=== PATIENT | female | born 1965 | race Caucasian/White ===

== ENCOUNTER 2016-08-04 12:57 | Outpatient (RCR) | payer BC, OTHER ==
--- OUTSIDE RECORDS SUMMARY | 2016-05-08 13:22 | XMS REPORT | Continuity of Care Document ---
Author Author [facility] Organization [facility] Address Unknown Phone Unavailable Care Team Providers Care Fire Medic Name Role Phone EDISON GUSMAN MD PCP Insurance Providers Payer Name Policy Number Subscriber Name Relationship Blue Cross [facility] [id number] Roshni Harden 18 Self / Same As Patient [facility] [id number] Roshni Harden 18 Self / Same As Patient Advance Directives Directive Response Recorded Date/Time Advance Directives No 04/10/14 10:34pm Health Care Power of Peel Oven Tender No 04/10/14 10:34pm Organ Donor No 04/10/14 10:34pm Problems Medical Problems Problem Onset Date Status Acquired hypothyroidism Unknown Active Hypokalemia Unknown Active Acquired hypothyroidism Unknown Active Stroke 04/24/2014 Active Medications Medication Dose Route Sig Days/Qty Instructions Order Date Discontinued Date Status [Iron] 10/07/09 07/20/11 Discontinued Aspirin 81 Mg PO DAILY 10/07/09 07/21/11 Discontinued Simvastatin 20 Mg PO DAILY 10/07/09 Active Alprazolam 1 Mg PO BEDTIME 07/20/11 03/14/14 Discontinued Estradiol 0.5 Mg PO DAILY 07/20/11 02/14/14 Discontinued Fluoxetine HCl (Prozac) 10 Mg PO AFTERNOON 07/20/11 04/24/14 Discontinued Aspirin 325 Mg PO DAILY 07/21/11 11/15/13 Discontinued Diltiazem Hcl 360 Mg PO DAILY 07/21/11 Active Triamterene/Hydrochlorothiazid 1 Each PO DAILY 11/14/13 Active Apixaban 5 Mg PO TWICE A DAY 60 Qty 11/15/13 02/15/14 Discontinued Metformin HCl (Glucophage) 1 Each PO TWICE A DAY WITH MEALS 02/14/14 Active Levothyroxine Sodium (Levothroid) 100 Mcg PO DAILY 30 Qty 03/14/14 Discontinued Apixaban (Eliquis) 5 60 Qty 03/14/14 Active Levothyroxine Sodium 137 Mcg PO DAILY 30 Qty 03/14/14 04/24/14 Discontinued Levothyroxine Sodium (Levothroid) 150 Mcg PO DAILY@0630 30 Qty Active Aspirin 81 Mg PO DAILY 100 Qty 04/24/14 Active Digoxin 0.25 Mg PO DAILY 30 Qty 04/24/14 Active Social History Social History Problem Response Recorded Date/Time Alcohol Use Denies Use 04/10/2014 10:36pm Recreational Drug Use No 04/10/2014 10:36pm Recent Foreign Travel No 04/10/2014 10:36pm Recent Infectious Disease Exposure No 04/10/2014 10:36pm Hospitalization with Isolation Denies 04/24/2014 1:23pm Sexually Transmitted Disease No 04/10/2014 10:36pm Hospital Discharge Instructions No hospital discharge instructions. Plan of Care No plan of care. Functional Status No functional status results. Allergies, Adverse Reactions, Alerts Allergen Type Severity Reaction Status Last Updated No Known Drug Allergies Active 09/08/07 Immunizations Name Given Type Hepatitis A No Historical Hepatitis B No Historical Tetanus Booster (TDap) Less than 5yrs Historical Vital Signs No known vital signs results. Results Laboratory Results Test Name Result Units Flags Reference Collection Date/Time Result Date/ Time Comments White Blood Count 13.1 10^3/uL H 4.3-11.0 10/11/2014 10:55am 10/11/2014 11:03am Red Blood Count 5.04 10^6/uL 4.35-5.85 10/11/2014 10:55am 10/11/2014 11 :03am Hemoglobin 14.1 G/DL 11.5-16.0 10/11/2014 10:55am 10/11/2014 11:03am Hematocrit 44 % 35-52 10/11/2014 10:55am 10/11/2014 11:03am Mean Corpuscular Volume 87 FL 80-99 10/11/2014 10:55am 10/11/2014 11: 03am Mean Corpuscular Hemoglobin 28 PG 25-34 10/11/2014 10:55am 10/11/2014 11:03am Mean Corpuscular Hemoglobin Concent 32 G/DL 32-36 10/11/2014 10:55am 11:03am Red Cell Distribution Width 15.9 % H 10.0-14.5 10/11/2014 10:55am 2014 11:03am Platelet Count 240 10^3/uL 130-400 10/11/2014 10:55am 10/11/2014 11: 03am Mean Platelet Volume 11.9 FL H 7.4-10.4 10/11/2014 10:55am 10/11/2014 11: 03am Neutrophils (%) (Auto) 73 % 42-75 10/11/2014 10:55am 10/11/2014 11: 03am Lymphocytes (%) (Auto) 20 % 12-44 10/11/2014 10:55am 10/11/2014 11: 03am Monocytes (%) (Auto) 6 % 0-12 10/11/2014 10:55am 10/11/2014 11:03am Eosinophils (%) (Auto) 2 % 0-10 10/11/2014 10:55am 10/11/2014 11:03am Basophils (%) (Auto) 0 % 0-10 10/11/2014 10:55am 10/11/2014 11:03am Neutrophils # (Auto) 9.5 X 10^3 H 1.8-7.8 10/11/2014 10:55am 10/11/2014 11:03am Lymphocytes # (Auto) 2.6 X 10^3 1.0-4.0 10/11/2014 10:55am 10/11/2014 11:03am Monocytes # (Auto) 0.8 X 10^3 0.0-1.0 10/11/2014 10:55am 10/11/2014 11: 03am Eosinophils # (Auto) 0.2 10^3/uL 0.0-0.3 10/11/2014 10:55am 10/11/2014 11:03am Basophils # (Auto) 0.1 10^3/uL 0.0-0.1 10/11/2014 10:55am 10/11/2014 11 :03am Neutrophils % (Manual) 61 % 10/11/2014 10:55am 10/11/2014 11:19am Band Neutrophils 1 % 10/11/2014 10:55am 10/11/2014 11:19am Lymphocytes % (Manual) 23 % 10/11/2014 10:55am 10/11/2014 11:19am Monocytes % (Manual) 11 % 10/11/2014 10:55am 10/11/2014 11:19am Eosinophils % (Manual) 1 % 10/11/2014 10:55am 10/11/2014 11:19am Basophils % (Manual) 0 % 10/11/2014 10:55am 10/11/2014 11:19am Reactive Lymphocytes 3 % 10/11/2014 10:55am 10/11/2014 11:19am Anisocytosis SLIGHT 10/11/2014 10:55am 10/11/2014 11:19am Macrocytosis SLIGHT 10/11/2014 10:55am 10/11/2014 11:19am Absolute Reticulocyte Count 96 10e9/L H 24-90 10/11/2014 10:55am 2014 11:03am Percent Reticulocyte Count 1.91 % 0.50-2.40 10/11/2014 10:55am 2014 11:03am Sodium Level 139 MMOL/L 135-145 10/11/2014 10:55am 10/11/2014 11:23am Potassium Level 3.4 MMOL/L L 3.6-5.0 10/11/2014 10:55am 10/11/2014 11: 23am Chloride Level 101 MMOL/L 98-107 10/11/2014 10:55am 10/11/2014 11:23am Carbon Dioxide Level 26 MMOL/L 21-32 10/11/2014 10:55am 10/11/2014 11: 23am Blood Urea Nitrogen 10 MG/DL 7-18 10/11/2014 10:55am 10/11/2014 11: 23am Creatinine 1.02 MG/DL 0.60-1.30 10/11/2014 10:55am 10/11/2014 11:23am BUN/Creatinine Ratio 10 10/11/2014 10:55am 10/11/2014 11:23am Estimat Glomerular Filtration Rate 58 10/11/2014 10:55am 2014 11:23am GFR INTERPRETIVE DATA UNITS FOR ESTIMATED GFR (eGFR): mL/min/1.73 M2 REFERENCE RANGE FOR ESTIMATED GFR (eGFR) eGFR NORMAL eGFR >60 MODERATELY DECREASED eGFR 30-59 SEVERLY DECREASED eGFR 15-29 KIDNEY FAILURE <15 (OR DIALYSIS) Glucose Level 111 MG/DL H 70-105 10/11/2014 10:55am 10/11/2014 11:23am Calcium Level 9.5 MG/DL 8.5-10.1 10/11/2014 10:55am 10/11/2014 11:23am Total Bilirubin 0.4 MG/DL 0.1-1.0 10/11/2014 10:55am 10/11/2014 11: 23am Alkaline Phosphatase 100 U/L 40-136 10/11/2014 10:55am 10/11/2014 11: 23am Aspartate Amino Transf (AST/SGOT) 12 U/L 5-34 10/11/2014 10:55am 2014 11:23am Alanine Aminotransferase (ALT/SGPT) 24 U/L 0-55 10/11/2014 10:55am 07/2015 11:23am Total Protein 6.8 G/DL 6.4-8.2 10/11/2014 10:55am 10/11/2014 11:23am Albumin 4.0 G/DL 3.2-4.5 10/11/2014 10:55am 10/11/2014 11:23am Triglycerides Level 222 MG/DL H <150 10/11/2014 10:55am 10/11/2014 11: 23am Cholesterol Level 149 MG/DL < 200 10/11/2014 10:55am 10/11/2014 11: 23am HDL Cholesterol 34 MG/DL L 40-60 10/11/2014 10:55am 10/11/2014 11:23am LDL Cholesterol Direct 82 MG/DL 1-129 10/11/2014 10:55am 10/11/2014 11: 23am VLDL Cholesterol 44 MG/DL H 5-40 10/11/2014 10:55am 10/11/2014 11:23am Thyroid Stimulating Hormone (TSH) 0.63 UIU/ML 0.35-4.94 10/11/2014 10: 55am 10/11/2014 11:45am Free Thyroxine 1.36 NG/DL 0.70-1.48 10/11/2014 10:55am 10/11/2014 11: 45am Digoxin Level 1.02 NG/ML 0.80-2.00 10/11/2014 10:55am 10/11/2014 11: 45am Hemoglobin A1c 4.1 % L 4.5-6.2 10/11/2014 10:55am 10/11/2014 11:39am Ferritin 8 L NG/ML 15-150 10/11/2014 10:55am 10/12/2014 8:52am Haptoglobin 211.0 H MG/DL 37.0-184.0 10/11/2014 10:55am 10/12/2014 8: 52am Vitamin B12 Level 242 PG/ML 200-1000 10/11/2014 10:55am 10/12/2014 8: 52am Vitamin D 25-Hydroxy 7 L NG/ML 30-100 10/11/2014 10:55am 10/12/2014 8: 52am Fluorescein dye has been shown to affect the Vitamin D assay and results may be falsely elevated. Patients that have had a procedure using this dye should be deferred 72 hours prior to blood samples drawn for this assay. Total Bilirubin 0.3 MG/DL 0.1-1.0 10/11/2014 10:55am 10/12/2014 8:52am Direct Bilirubin 0.1 MG/DL 0.0-0.2 10/11/2014 10:55am 10/12/2014 8: 52am Lactate Dehydrogenase 132 U/L 100-250 10/11/2014 10:55am 10/12/2014 8: 52am Immature Platelet Fraction 14.8 H % 0.0-7.2 10/11/2014 10:55am 2014 8:52am SCAN REVIEW LARGE PLATELETS SEEN ON SCAN. Procedures Procedure Status Date Provider(s) Tracing only of electrocardiogram completed 10/11/14 EDISON GUSMAN MD Color Doppler echocardiography completed 10/12/14 JAYY HERMAN MD 48 hour Holter monitoring completed 10/12/14 JAYY HERMAN MD 48 hour Holter monitoring completed 10/12/14 JAYY HERMAN MD Encounters Encounter Location Date/Time Discharged Recurring Via [facility] 11/01/14 1:00pm Registered Clinic Via [facility] 10/12/14 9:59am Registered Clinic Via [facility] 10/11/14 10:24am
[~2016-08-04 12:57] MED LIST: ALPR1T PO; APIX5TAB2; APIX5TAB2 PO; ASP325TEC PO; ASP81CT PO; ASPI-892 PO; DIGO250T15 PO; DILT360C26 PO; ESTR0.5T PO; FLUO10CA19 PO; IRON; LEVO137T17 PO; LVT.15T PO; LVT.1T PO; MTF500T PO; SIMV20TA3 PO; TRIA1CAP4 PO
== END 2016-08-06 | disposition home or self-care (01) ==
PROVIDERS: ATTEND Family Medicine
DX: I69.820 Aphasia following other cerebrovascular disease (principal); I69.893 Ataxia following other cerebrovascular disease

== ENCOUNTER 2016-09-01 12:51 | Outpatient (RCR) | payer BC, OTHER ==
--- OUTSIDE RECORDS SUMMARY | 2016-08-11 12:50 | XMS REPORT | Continuity of Care Document ---
Author Author [facility] Organization [facility] Address Unknown Phone Unavailable Care Team Providers Care Inventory Management Specialist Name Role Phone EDISON GUSMAN MD PCP Insurance Providers Payer Name Policy Number Subscriber Name Relationship Blue Cross [facility] [id number] Roshni Harden 18 Self / Same As Patient [facility] [id number] Roshni Harden 18 Self / Same As Patient Advance Directives Directive Response Recorded Date/Time Advance Directives No 04/10/14 10:34pm Health Care Power of Stevedore Dock No 04/10/14 10:34pm Organ Donor No 04/10/14 [...] Encounters Encounter Location Date/Time Discharged Recurring Via [facility] 11/01/14 1:00pm Registered Clinic Via [facility] 10/12/14 9:59am Registered Clinic Via [facility] 10/11/14 10:24am
== END 2016-09-01 13:34 | disposition home or self-care (01) ==
PROVIDERS: ATTEND Family Medicine
DX: I69.820 Aphasia following other cerebrovascular disease (principal); I69.893 Ataxia following other cerebrovascular disease

== ENCOUNTER → 2016-10-07 | Outpatient (CLI) | payer BC ==
--- OUTSIDE RECORDS SUMMARY | 2016-10-07 08:26 | XMS REPORT | Continuity of Care Document ---
Author Author [facility] Organization [facility] Address Unknown Phone Unavailable Care Team Providers Care Cap Cutter Name Role Phone EDISON GUSMAN MD PCP Insurance Providers Payer Name Policy Number Subscriber Name Relationship Blue Cross [facility] [id number] Roshni Harden 18 Self / Same As Patient [facility] [id number] Roshni Harden 19 Self / Same As Patient Advance Directives Directive Response Recorded Date/Time Advance Directives No 04/10/14 10:34pm Health Care Power of Prepress Specialist No 04/10/14 10:34pm Organ Donor No 04/10/14 [...] Encounters Encounter Location Date/Time Discharged Recurring Via [facility] 11/01/14 1:00pm Registered Clinic Via [facility] 10/12/14 9:59am Registered Clinic Via [facility] 10/11/14 10:24am
[2016-10-07 08:32] LABS: BASOPHILS % (AUTO) 0 % (0-10); EOSINOPHILS # (AUTO) 0.3 10^3/uL (0.0-0.3); EOSINOPHILS % (AUTO) 2 % (0-10); LYMPHOCYTES # (AUTO) 3.3 X 10^3 (1.0-4.0); LYMPHOCYTES % (AUTO) 23 % (12-44); MEAN CORPUSCULAR HEMOGLOBIN 29 PG (25-34); MEAN CORPUSCULAR HGB CONC 33 G/DL (32-36); MEAN CORPUSCULAR VOLUME 89 FL (80-99); MONOCYTES % (AUTO) 7 % (0-12); NEUTROPHILS # (AUTO) 10.1 X 10^3 (1.8-7.8); NEUTROPHILS % (AUTO) 69 % (42-75); PLATELET COUNT 210 10^3/uL (130-400); RED BLOOD COUNT 5.75 10^6/uL (4.35-5.85); RED CELL DISTRIBUTION WIDTH 15.5 % (10.0-14.5); RETICULOCYTE % 2.08 % (0.50-2.40); WHITE BLOOD COUNT 14.7 10^3/uL (4.3-11.0)
[2016-10-07 08:33] LABS: PATH WILL NEED TO REVIEW SMEAR PATH TO REVIEW
[2016-10-07 09:14] LABS: ANISOCYTOSIS SLIGHT; BAND NEUTROPHILS 1 %; BASOPHILS % (MANUAL) 0 %; EOSINOPHILS % (MANUAL) 0 %; LYMPHOCYTES % (MANUAL) 30 %; NEUTROPHILS % (MANUAL) 62 %; REACTIVE LYMPHOCYTES 1 %
== END ==
LOC: LAB 08:21
PROVIDERS: ATTEND Nurse Practitioner Family
DX: D72.829 Elevated white blood cell count, unspecified (principal)
CPT/HCPCS: 36415; 85007; 85027; 85045

== ENCOUNTER → 2016-11-26 | Outpatient (CLI) | payer BC, MEDICAID ==
[~2016-11-26] MED LIST changes: +BARIUM SUSPENSION 2.1% (VANILLA SILQ) 450 ML PO ONE; +CATHETER FLUSH 10 ML SYR IV PRN; +IOHEXOL 350 MG/ML 100 ML (OMNIPAQUE 350) VIAL IV ONE; +NS 100 ML (IVPB) BAG IV ONE; +ceFAZolin 1 GM/NS 50 ML IVPB IV ONE
--- NOTE | 2016-11-26 14:58 | Diagnostic Imaging Report ---
PROCEDURE: CT of the chest and pelvis with contrast and CT of the abdomen with and without contrast. INDICATION: Lymphadenopathy. TECHNIQUE: CT imaging of the abdomen before as well as to the chest, abdomen and pelvis following the administration of the intravenous contrast. CORRELATION STUDY: CT chest 09/22/2011, CT abdomen and pelvis 09/20/2009. FINDINGS: CT CHEST: Since the prior imaging, patient has developed calcified periazygal lymph nodes. Scattered shotty mediastinal lymph nodes are present. No pathologically enlarged mediastinal and/or hilar lymph nodes. Axilla unremarkable. Scattered asymmetric areas of nodularity in bilateral breasts, right greater than left. Thoracic aorta is unremarkable. Heart size is normal. No pericardial effusion. EG junction has small hiatal hernia. Lung ellsworth are clear. CT ABDOMEN and PELVIS: Uniform attenuation of liver parenchyma without focal lesion. Gallbladder is absent. Spleen is unremarkable, it is not abnormally enlarged. Pancreas is unremarkable. Hyperplasia of the adrenal glands appearing generally stable. Kidneys with normal enhancement. Abdominal aorta with very mild wall calcification, nonaneurysmal. No pathologically enlarged central or retroperitoneal lymph nodes. Suggestion of slight fullness about the proximal stomach just distal to the EG junction. Small bowel unremarkable. Colon without obstruction or inflammation. Normal appendix in the right lower quadrant. Mild severity fecal retention. No abdominal ascites or free air. Urinary bladder is decompressed. Uterus and adnexa are unremarkable. Osseous structures of the abdomen and pelvis are unremarkable. IMPRESSION: CT CHEST: 1. Negative for acute abnormality of the chest. No evidence for pathologically enlarged thoracic lymphadenopathy. 2. Slightly nodular appearance about the breast parenchymal pattern. Correlation with mammographic evaluation would be recommended if not recently performed. CT ABDOMEN and PELVIS: 1. Negative for acute abnormality about the abdomen and/or pelvis. No pathologically enlarged abdominal or pelvic lymphadenopathy. 2. Hiatal hernia. Questionable wall thickening of the proximal stomach. Correlation with any symptoms. If further assessment is desired, endoscopy and/or upper gastrointestinal imaging recommended. Dictated by: Dictated on workstation # [id number]
== END ==
LOC: RAD 11:32
PROVIDERS: ATTEND Internal Medicine Hematology & Oncology
DX: R59.0 Localized enlarged lymph nodes (principal); K44.9 Diaphragmatic hernia without obstruction or gangrene
CPT/HCPCS: 71260; 74178

== ENCOUNTER 2016-12-07 14:03 | Outpatient (RCR) | payer BC, MEDICAID ==
--- OUTSIDE RECORDS SUMMARY | 2016-10-19 08:44 | XMS REPORT | Continuity of Care Document ---
Author Author [facility] Organization [facility] Address Unknown Phone Unavailable Care Team Providers Care Cobbler Upper Name Role Phone EDISON GUSMAN MD PCP Insurance Providers Payer Name Policy Number Subscriber Name Relationship Blue Cross [facility] [id number] Roshni Harden 18 Self / Same As Patient [facility] [id number] Roshni Harden 19 Self / Same As Patient Advance Directives Directive Response Recorded Date/Time Advance Directives No 04/10/14 10:34pm Health Care Power of Orthotics Prosthetics Technician No 04/10/14 10:34pm Organ Donor No 04/10/14 [...] Encounters Encounter Location Date/Time Discharged Recurring Via [facility] 11/01/14 1:00pm Registered Clinic Via [facility] 10/12/14 9:59am Registered Clinic Via [facility] 10/11/14 10:24am
[2016-10-19 08:53] LABS: BASOPHILS % (AUTO) 0 % (0-10); EOSINOPHILS # (AUTO) 0.2 10^3/uL (0.0-0.3); EOSINOPHILS % (AUTO) 2 % (0-10); LYMPHOCYTES # (AUTO) 2.7 X 10^3 (1.0-4.0); LYMPHOCYTES % (AUTO) 21 % (12-44); MEAN CORPUSCULAR HEMOGLOBIN 29 PG (25-34); MEAN CORPUSCULAR HGB CONC 33 G/DL (32-36); MEAN CORPUSCULAR VOLUME 89 FL (80-99); MEAN PLATELET VOLUME 12.1 FL (7.4-10.4); MONOCYTES # (AUTO) 0.9 X 10^3 (0.0-1.0); MONOCYTES % (AUTO) 7 % (0-12); NEUTROPHILS % (AUTO) 71 % (42-75); PLATELET COUNT 203 10^3/uL (130-400); RED BLOOD COUNT 5.64 10^6/uL (4.35-5.85); RED CELL DISTRIBUTION WIDTH 15.8 % (10.0-14.5); RETICULOCYTE % 1.91 % (0.50-2.40); WHITE BLOOD COUNT 12.8 10^3/uL (4.3-11.0)
[2016-10-19 09:33] LABS: BILIRUBIN,TOTAL 0.5 MG/DL (0.1-1.0); CALCIUM 9.1 MG/DL (8.5-10.1); CREATININE SERUM 1.19 MG/DL (0.60-1.30); POTASSIUM 4.6 MMOL/L (3.6-5.0); TOTAL PROTEIN 6.8 G/DL (6.4-8.2)
[2016-10-19 12:40] LABS: %SAT TOTAL IRON BINDING CAPIC 26 % (15-50); TIBC 465 ug/dL (280-380)
[2016-10-19 16:06] LABS: UIBC 346 ug/dL (55-450)
[2016-10-23 16:16] LABS: JAK2 MUTATION Not Detected
[2016-11-16 14:20] LABS: BASOPHILS % (AUTO) 0 % (0-10); EOSINOPHILS # (AUTO) 0.2 10^3/uL (0.0-0.3); EOSINOPHILS % (AUTO) 2 % (0-10); LYMPHOCYTES # (AUTO) 3.1 X 10^3 (1.0-4.0); LYMPHOCYTES % (AUTO) 23 % (12-44); MEAN CORPUSCULAR HEMOGLOBIN 30 PG (25-34); MEAN CORPUSCULAR HGB CONC 33 G/DL (32-36); MEAN CORPUSCULAR VOLUME 90 FL (80-99); MEAN PLATELET VOLUME 11.9 FL (7.4-10.4); MONOCYTES # (AUTO) 0.9 X 10^3 (0.0-1.0); MONOCYTES % (AUTO) 7 % (0-12); NEUTROPHILS % (AUTO) 68 % (42-75); PLATELET COUNT 207 10^3/uL (130-400); RED BLOOD COUNT 5.32 10^6/uL (4.35-5.85); RED CELL DISTRIBUTION WIDTH 15.2 % (10.0-14.5); WHITE BLOOD COUNT 13.3 10^3/uL (4.3-11.0)
[2016-11-16 16:03] LABS: CALCIUM 8.7 MG/DL (8.5-10.1); POTASSIUM 4.3 MMOL/L (3.6-5.0)
[~2016-12-07 14:03] MED LIST changes: -BARIUM SUSPENSION 2.1% (VANILLA SILQ) 450 ML PO ONE; -CATHETER FLUSH 10 ML SYR IV PRN; -IOHEXOL 350 MG/ML 100 ML (OMNIPAQUE 350) VIAL IV ONE; -NS 100 ML (IVPB) BAG IV ONE; -ceFAZolin 1 GM/NS 50 ML IVPB IV ONE
[2016-12-07 14:37] LABS: BASOPHILS % (AUTO) 0 % (0-10); EOSINOPHILS # (AUTO) 0.2 10^3/uL (0.0-0.3); EOSINOPHILS % (AUTO) 2 % (0-10); LYMPHOCYTES # (AUTO) 3.3 X 10^3 (1.0-4.0); LYMPHOCYTES % (AUTO) 22 % (12-44); MEAN CORPUSCULAR HEMOGLOBIN 30 PG (25-34); MEAN CORPUSCULAR HGB CONC 32 G/DL (32-36); MEAN CORPUSCULAR VOLUME 91 FL (80-99); MONOCYTES # (AUTO) 1.1 X 10^3 (0.0-1.0); MONOCYTES % (AUTO) 8 % (0-12); NEUTROPHILS # (AUTO) 10.2 X 10^3 (1.8-7.8); NEUTROPHILS % (AUTO) 68 % (42-75); PLATELET COUNT 204 10^3/uL (130-400); RED BLOOD COUNT 5.45 10^6/uL (4.35-5.85); RED CELL DISTRIBUTION WIDTH 14.9 % (10.0-14.5); WHITE BLOOD COUNT 14.9 10^3/uL (4.3-11.0)
== END 2017-02-14 | disposition home or self-care (01) ==
LOC: ONC 14:03
PROVIDERS: ATTEND Internal Medicine Hematology & Oncology
DX: D72.829 Elevated white blood cell count, unspecified (principal)
CPT/HCPCS: 36415; 80048; 80053; 81270; 82668; 82728; 83540; 83615; 85025; 85045; 99213; 99214

== ENCOUNTER 2018-01-24 08:39 | Outpatient (RCR) | payer BC ==
[2018-01-24 09:43] LABS: BASOPHILS % (AUTO) 0 % (0-10); EOSINOPHILS # (AUTO) 0.2 10^3/uL (0.0-0.3); EOSINOPHILS % (AUTO) 2 % (0-10); HEMATOCRIT 53 % (35-52); HEMOGLOBIN 17.4 G/DL (11.5-16.0); LYMPHOCYTES # (AUTO) 2.5 X 10^3 (1.0-4.0); LYMPHOCYTES % (AUTO) 22 % (12-44); MEAN CORPUSCULAR HEMOGLOBIN 31 PG (25-34); MEAN CORPUSCULAR HGB CONC 33 G/DL (32-36); MEAN CORPUSCULAR VOLUME 93 FL (80-99); MEAN PLATELET VOLUME 12.3 FL (7.4-10.4); MONOCYTES # (AUTO) 0.7 X 10^3 (0.0-1.0); MONOCYTES % (AUTO) 6 % (0-12); NEUTROPHILS # (AUTO) 7.8 X 10^3 (1.8-7.8); NEUTROPHILS % (AUTO) 69 % (42-75); PLATELET COUNT 197 10^3/uL (130-400); RED BLOOD COUNT 5.66 10^6/uL (4.35-5.85); RED CELL DISTRIBUTION WIDTH 14.5 % (10.0-14.5); WHITE BLOOD COUNT 11.2 10^3/uL (4.3-11.0)
[2018-01-24 10:34] LABS: LYMPHOCYTES % (MANUAL) 12 %; MONOCYTES % (MANUAL) 10 %; NEUTROPHILS % (MANUAL) 69 %
[2018-01-24 10:35] LABS: BASOPHILS % (MANUAL) 1 %; EOSINOPHILS % (MANUAL) 1 %; RBC MORPH NORMAL; REACTIVE LYMPHOCYTES 7 %
== END 2018-04-24 | disposition home or self-care (01) ==
LOC: ONC 08:39
PROVIDERS: ATTEND Internal Medicine Hematology & Oncology
DX: D75.1 Secondary polycythemia (principal); D72.829 Elevated white blood cell count, unspecified; F17.210 Nicotine dependence, cigarettes, uncomplicated
CPT/HCPCS: 36415; 81206; 82375; 85007; 85027; 99213

== ENCOUNTER 2019-02-17 09:25 | Outpatient (RCR) | payer BC, OTHER ==
[2019-02-17 09:58] LABS: BASOPHILS % (AUTO) 0 % (0-10); EOSINOPHILS # (AUTO) 0.1 10^3/uL (0.0-0.3); EOSINOPHILS % (AUTO) 1 % (0-10); HEMATOCRIT 54 % (35-52); HEMOGLOBIN 17.7 G/DL (11.5-16.0); LYMPHOCYTES # (AUTO) 2.6 X 10^3 (1.0-4.0); LYMPHOCYTES % (AUTO) 23 % (12-44); MEAN CORPUSCULAR HEMOGLOBIN 31 PG (25-34); MEAN CORPUSCULAR HGB CONC 33 G/DL (32-36); MEAN CORPUSCULAR VOLUME 94 FL (80-99); MEAN PLATELET VOLUME 12.6 FL (7.4-10.4); MONOCYTES # (AUTO) 0.5 X 10^3 (0.0-1.0); MONOCYTES % (AUTO) 4 % (0-12); NEUTROPHILS # (AUTO) 8.3 X 10^3 (1.8-7.8); NEUTROPHILS % (AUTO) 72 % (42-75); PLATELET COUNT 171 10^3/uL (130-400); RED CELL DISTRIBUTION WIDTH 14.7 % (10.0-14.5); WHITE BLOOD COUNT 11.6 10^3/uL (4.3-11.0)
[2019-02-17 10:16] LABS: ALBUMIN 4.2 GM/DL (3.2-4.5); BILIRUBIN,TOTAL 0.5 MG/DL (0.1-1.0); CALCIUM 9.4 MG/DL (8.5-10.1); CREATININE SERUM 1.21 MG/DL (0.60-1.30); POTASSIUM 4.3 MMOL/L (3.6-5.0); TOTAL PROTEIN 7.4 GM/DL (6.4-8.2)
== END 2019-05-18 | disposition home or self-care (01) ==
LOC: ONC 09:25
PROVIDERS: ATTEND Internal Medicine Hematology & Oncology
DX: D75.1 Secondary polycythemia (principal); D72.829 Elevated white blood cell count, unspecified; F17.210 Nicotine dependence, cigarettes, uncomplicated
CPT/HCPCS: 36415; 80053; 82728; 85025; 99213

== ENCOUNTER → 2019-08-22 | Outpatient (CLI) | payer BC, MEDICAID | LOC: RAD 11:05 | PROVIDERS: ATTEND Family Medicine | DX: Z12.31 Encounter for screening mammogram for malignant neoplasm of breast (principal) | CPT/HCPCS: 77067 ==

== ENCOUNTER 2020-10-07 06:59 | Day surgery (SDC) | payer MEDICARE, BC, MEDICAID ==
[~2020-10-07] VITALS: Ht 170.2 cm; Wt 106.8 kg
[2020-10-07] VITALS (11 sets, daily range): BP systolic 99–144; BP diastolic 62–90
[2020-10-07 07:52] LABS: ABSOLUTE RETIC # 150 10e9/uL (24-90); BASOPHILS % (AUTO) 0 % (0-10); EOSINOPHILS # (AUTO) 0.2 10^3/uL (0.0-0.3); EOSINOPHILS % (AUTO) 1 % (0-10); HEMATOCRIT 52 % (35-52); HEMOGLOBIN 17.1 g/dL (11.5-16.0); LYMPHOCYTES # (AUTO) 2.8 10^3/uL (1.0-4.0); LYMPHOCYTES % (AUTO) 24 % (12-44); MEAN CORPUSCULAR HEMOGLOBIN 31 pg (25-34); MEAN CORPUSCULAR HGB CONC 33 g/dL (32-36); MEAN CORPUSCULAR VOLUME 94 fL (80-99); MONOCYTES # (AUTO) 0.7 10^3/uL (0.0-1.0); MONOCYTES % (AUTO) 6 % (0-12); NEUTROPHILS # (AUTO) 8.2 10^3/uL (1.8-7.8); NEUTROPHILS % (AUTO) 69 % (42-75); PLATELET COUNT 170 10^3/uL (130-400); RETICULOCYTE % 2.72 % (0.50-2.40); WHITE BLOOD COUNT 11.9 10^3/uL (4.3-11.0)
[2020-10-07] MEDS ORDERED: NS IV 1000 ML 1,000 ML IV STA (07:56)
[2020-10-07] MEDS ORDERED: MIDAZOLAM 2 MG/2 ML (VERSED) VIAL IVP ONE (08:00)
[2020-10-07] MEDS ORDERED: LIDOCAINE 1% INJ 20 ML 20 ML VIAL INJ ONE (08:00)
[2020-10-07] MEDS ORDERED: fentaNYL INJ 100 MCG/2 ML AMP IVP ONE (08:00)
[2020-10-07 08:28] LABS: PROTHROMBIN TIME PATIENT 13.2 SEC (12.2-14.7)
--- NOTE | 2020-10-07 09:39 | Diagnostic Imaging Report ---
INDICATION: Elevated hemoglobin. The patient was brought to the CT suite, placed on table in the prone position. Axial imaging through the pelvis was performed to evaluate for appropriate entry site. Skin of the low back was prepped and draped in the usual sterile fashion. Small amount of 1% lidocaine was utilized for local anesthesia. The procedure was performed utilizing conscious sedation with radiology nursing and constant patient monitoring. Patient was given total of 50 mcg fentanyl intravenously and 1 mg of Versed intravenously. Total procedure time was 6 minutes. Bone marrow biopsy needle was advanced and placed with its tip along the posterior cortex of the right iliac bone. The needle was passed through the cortex utilizing a bone marrow drill. 2 bone marrow aspirates were then obtained. The drill was then utilized to obtain a core biopsy. Needle was withdrawn and hemostasis was obtained. Patient tolerated the procedure well and left the Department in stable condition. IMPRESSION: Successful CT-guided bone marrow aspiration and core biopsy, utilizing conscious sedation. Dictated by: Dictated on workstation # [id number]
[2020-10-07] MEDS ORDERED: HYDROcodone/APAP 5 MG/325 MG (LORTAB) TAB PO PRN (09:45)
[2020-10-07 10:17] LABS: EOSINOPHILS % (MANUAL) 2 %; LYMPHOCYTES % (MANUAL) 22 %; MONOCYTES % (MANUAL) 5 %; NEUTROPHILS % (MANUAL) 71 %; RBC MORPH NORMAL
--- NOTE | 2020-10-07 12:52 | Pre-Op Note & Conscious Sedat ---
Pre-Operative Progress Note H&P Reviewed The H&P was reviewed, patient examined and no changes noted. Date H&P Reviewed: Oct 07, 2020 Time H&P Reviewed: 09:00 Pre-Op Diagnosis: High hemoglobin Conscious Sedation Pre-Proced Time 09:00 ASA Score 2 For ASA 3 and 4: Consider anesthesia and medical clearance. Also, for patients with a history of failed moderate sedation consider anesthesia. Airway Lungs Heart ASA score ASA 1: a normal healthy patient ASA 2: a patient with a mild systemic disease (mid diabetes, controlled hypertension, obesity ASA 3: a patient with a severe systemic disease that limits activity (angina, COPD, prior Myocardial infarction) ASA 4: a patient with an incapacitating disease that is a constant threat to life (CHF, renal failure) ASA 5: a moribund patient not expected to survive 24 hrs. (ruptured aneurysm) ASA 6: a declared brain- patient whose organs are being harvested. For emergent operations, add the letter E after the classification Mallampati Classification Grade 2 Sedation Plan Analgesia, Amnesia, Plan communicated to team members, Discussed options with patient/fam, Discussed risks with patient/fam The patient is an appropriate candidate to undergo the planned procedure, sedation, and anesthesia. The patient immediately re-assessed prior to indication. MARK JOHNSON MD Oct 07, 2020 12:51
== END 2020-10-07 11:35 | disposition home or self-care (01) ==
LOC: RAD 06:59 → SDC 09:30 → RAD 11:35
PROVIDERS: ATTEND Internal Medicine Hematology & Oncology
DX: D72.829 Elevated white blood cell count, unspecified (principal); E78.5 Hyperlipidemia, unspecified; E87.6 Hypokalemia; I10 Essential (primary) hypertension; I25.10 Atherosclerotic heart disease of native coronary artery without angina pectoris; I48.0 Paroxysmal atrial fibrillation; D58.2 Other hemoglobinopathies; F17.210 Nicotine dependence, cigarettes, uncomplicated; E66.9 Obesity, unspecified; Z68.36 Body mass index [BMI] 36.0-36.9, adult; Z79.82 Long term (current) use of aspirin; Z79.899 Other long term (current) drug therapy; Z86.73 Personal history of transient ischemic attack (TIA), and cerebral infarction without residual deficits; Z83.3 Family history of diabetes mellitus
CPT/HCPCS: 36415; 38222; 81402; 81403; 85007; 85025; 85027; 85045; 85610; 85730; 88184; 88185; 88305; 88311; 88313; 88377; 99156

== ENCOUNTER → 2020-10-18 | Outpatient (CLI) | payer MEDICARE, BC, MEDICAID | LOC: LABNPT 08:23 | PROVIDERS: ATTEND Internal Medicine Critical Care Medicine | DX: Z20.822 Contact with and (suspected) exposure to COVID-19 (principal) | CPT/HCPCS: 87635 ==

== ENCOUNTER 2020-10-22 20:04 | Outpatient (CLI) | payer MEDICARE, BC, MEDICAID | END 2020-10-23 06:20 | disposition home or self-care (01) | LOC: SLEEP 20:04 | PROVIDERS: ATTEND Internal Medicine Hematology & Oncology | DX: G47.10 Hypersomnia, unspecified (principal) | CPT/HCPCS: 95810 ==

== ENCOUNTER 2020-10-31 14:23 | Outpatient (RCR) | payer MEDICARE, BC, MEDICAID ==
[2020-09-26 14:48] LABS: BASOPHILS # (AUTO) 0.1 10^3/uL (0.0-0.1); BASOPHILS % (AUTO) 0 % (0-10); EOSINOPHILS # (AUTO) 0.1 10^3/uL (0.0-0.3); EOSINOPHILS % (AUTO) 1 % (0-10); HEMATOCRIT 55 % (35-52); LYMPHOCYTES # (AUTO) 3.5 10^3/uL (1.0-4.0); LYMPHOCYTES % (AUTO) 30 % (12-44); MEAN CORPUSCULAR HEMOGLOBIN 31 pg (25-34); MEAN CORPUSCULAR HGB CONC 33 g/dL (32-36); MEAN CORPUSCULAR VOLUME 94 fL (80-99); MEAN PLATELET VOLUME 12.8 fL (9.0-12.2); MONOCYTES # (AUTO) 0.6 10^3/uL (0.0-1.0); MONOCYTES % (AUTO) 6 % (0-12); NEUTROPHILS # (AUTO) 7.2 10^3/uL (1.8-7.8); NEUTROPHILS % (AUTO) 62 % (42-75); PLATELET COUNT 172 10^3/uL (130-400); WHITE BLOOD COUNT 11.5 10^3/uL (4.3-11.0)
[2020-09-26 15:08] LABS: ALBUMIN 4.2 GM/DL (3.2-4.5); BILIRUBIN,TOTAL 0.6 MG/DL (0.1-1.0); CALCIUM 9.1 MG/DL (8.5-10.1); POTASSIUM 4.3 MMOL/L (3.6-5.0); TOTAL PROTEIN 7.2 GM/DL (6.4-8.2)
[2020-10-31 14:49] LABS: LYMPHOCYTES % (AUTO) 28 % (12-44); MONOCYTES % (AUTO) 6 % (0-12)
[2020-10-31 14:51] LABS: ABSOLUTE RETIC # 125 10e9/uL (24-90); BASOPHILS # (AUTO) 0.1 10^3/uL (0.0-0.1); BASOPHILS % (AUTO) 0 % (0-10); EOSINOPHILS # (AUTO) 0.2 10^3/uL (0.0-0.3); EOSINOPHILS % (AUTO) 1 % (0-10); HEMATOCRIT 52 % (35-52); LYMPHOCYTES # (AUTO) 3.4 10^3/uL (1.0-4.0); MEAN CORPUSCULAR HEMOGLOBIN 31 pg (25-34); MEAN CORPUSCULAR HGB CONC 33 g/dL (32-36); MEAN CORPUSCULAR VOLUME 94 fL (80-99); MEAN PLATELET VOLUME 13.8 fL (9.0-12.2); MONOCYTES # (AUTO) 0.8 10^3/uL (0.0-1.0); NEUTROPHILS # (AUTO) 7.7 10^3/uL (1.8-7.8); NEUTROPHILS % (AUTO) 64 % (42-75); PLATELET COUNT 170 10^3/uL (130-400); RETICULOCYTE % 2.27 % (0.50-2.40); WHITE BLOOD COUNT 12.1 10^3/uL (4.3-11.0)
[2020-10-31 15:10] LABS: ALANINE AMINOTRANSFERASE 27 U/L (0-55); ALBUMIN 4.1 GM/DL (3.2-4.5); ALKALINE PHOSPHATASE 88 U/L (40-136); BILIRUBIN,TOTAL 0.5 MG/DL (0.1-1.0); BUN/CREATININE RATIO 10; CALCIUM 9.2 MG/DL (8.5-10.1); CARBON DIOXIDE 24 MMOL/L (21-32); CHLORIDE 106 MMOL/L (98-107); CREATININE SERUM 0.94 MG/DL (0.60-1.30); GFR ESTIMATED > 60; GLUCOSE 106 MG/DL (70-105); POTASSIUM 4.5 MMOL/L (3.6-5.0); SODIUM 140 MMOL/L (135-145); TOTAL PROTEIN 6.9 GM/DL (6.4-8.2)
== END 2020-12-25 | disposition home or self-care (01) ==
LOC: ONC 14:23
PROVIDERS: ATTEND Internal Medicine Hematology & Oncology
DX: D58.2 Other hemoglobinopathies (principal); D72.829 Elevated white blood cell count, unspecified; I48.0 Paroxysmal atrial fibrillation; I10 Essential (primary) hypertension; E78.5 Hyperlipidemia, unspecified; I25.10 Atherosclerotic heart disease of native coronary artery without angina pectoris; Z86.73 Personal history of transient ischemic attack (TIA), and cerebral infarction without residual deficits; Z72.0 Tobacco use
CPT/HCPCS: 80053; 82375; 85025; 99195; G0463; 82728; 83540; 83550; 85045; 99213

== ENCOUNTER 2021-03-12 11:22 | Outpatient (CLI) | payer MEDICARE, MEDICAID ==
[~2021-03-12] VITALS: Ht 167.7 cm; Wt 90.8 kg
[2021-03-12 11:39] VITALS: BP 138/69
[2021-03-12 12:07] LABS: MEAN PLATELET VOLUME 12.8 fL (9.0-12.2)
[2021-03-12 12:09] LABS: BASOPHILS # (AUTO) 0.1 10^3/uL (0.0-0.1); BASOPHILS % (AUTO) 1 % (0-10); EOSINOPHILS # (AUTO) 0.1 10^3/uL (0.0-0.3); EOSINOPHILS % (AUTO) 1 % (0-10); HEMATOCRIT 53 % (35-52); HEMOGLOBIN 17.1 g/dL (11.5-16.0); LYMPHOCYTES # (AUTO) 2.5 10^3/uL (1.0-4.0); LYMPHOCYTES % (AUTO) 23 % (12-44); MEAN CORPUSCULAR HEMOGLOBIN 30 pg (25-34); MEAN CORPUSCULAR HGB CONC 32 g/dL (32-36); MEAN CORPUSCULAR VOLUME 94 fL (80-99); MONOCYTES # (AUTO) 0.7 10^3/uL (0.0-1.0); MONOCYTES % (AUTO) 6 % (0-12); NEUTROPHILS # (AUTO) 7.6 10^3/uL (1.8-7.8); NEUTROPHILS % (AUTO) 69 % (42-75); PLATELET COUNT 148 10^3/uL (130-400)
[2021-03-12 12:27] LABS: CALCIUM 9.2 MG/DL (8.5-10.1); CREATININE SERUM 0.86 MG/DL (0.60-1.30); POTASSIUM 4.3 MMOL/L (3.6-5.0)
[2021-03-12] MEDS ORDERED: SIMV20TA26 PO (13:30)
[2021-03-12] MEDS ORDERED: METO50TA7 PO (13:30)
[2021-03-12] MEDS ORDERED: DIGO125T3 PO (13:30)
[2021-03-12] MEDS ORDERED: ASPI-999 PO (13:30)
[2021-03-12] MEDS ORDERED: APIX5TAB PO (13:30)
[2021-03-12] MEDS ORDERED: DILT180C54 PO (13:30)
[2021-03-12] MEDS ORDERED: LEVO150C4 PO (13:30)
== END 2021-03-12 13:31 ==
LOC: PREOP 11:22
PROVIDERS: ATTEND Otolaryngology Otolaryngology/Facial Plastic Surgery
DX: Z01.812 Encounter for preprocedural laboratory examination (principal); J34.89 Other specified disorders of nose and nasal sinuses
CPT/HCPCS: 36415; 80048; 85025; 87081; 93005

== ENCOUNTER 2021-03-20 06:05 | Day surgery (SDC) | payer MEDICARE, MEDICAID ==
[~2021-03-20] VITALS: Ht 167 cm; Wt 90.8 kg
[2021-03-20] VITALS (8 sets, daily range): BP systolic 110–125; BP diastolic 52–76
[~2021-03-20 06:05] MED LIST changes: +APIX5TAB PO; +ASPI-999 PO; +DIGO125T3 PO; +DILT180C54 PO; +LEVO150C4 PO; +METO50TA7 PO; +SIMV20TA26 PO
[2021-03-20] MEDS: LACTATED RINGERS 1,000 ML IV PRN ×2 (06:37→07:37)
[2021-03-20] MEDS ORDERED: SEVOFLURANE (ULTANE) 15 ML INHAL SOLN ONE ×2 (06:44→08:17)
[2021-03-20] MEDS ORDERED: fentaNYL INJ 100 MCG/2 ML AMP ONE (06:44)
[2021-03-20] MEDS ORDERED: proPOfol 200 MG/20 ML (DIPRIVAN) VIAL IV ONE (06:44)
[2021-03-20] MEDS ORDERED: LIDOCAINE PF 2% 5 ML (XYLOCAINE) VIAL ONE (06:44)
[2021-03-20] MEDS ORDERED: ROCURONIUM 10 MG/ML 5 ML SYRINGE IV ONE (06:44)
[2021-03-20] MEDS ORDERED: MIDAZOLAM 2 MG/2 ML (VERSED) VIAL ONE (06:44)
[2021-03-20] MEDS ORDERED: ONDANSETRON 4 MG/2 ML (SDV) Z0FRAN ONE (06:44)
--- NOTE | 2021-03-20 06:59 | Progress Note-Pre Operative ---
Pre-Operative Progress Note H&P Reviewed The H&P was reviewed, patient examined and no changes noted. Date Seen by Provider: Mar 20, 2021 Time Seen by Provider: 06:30 Date H&P Reviewed: Mar 20, 2021 Time H&P Reviewed: 06:30 Pre-Operative Diagnosis: Right Nasal Alar Lesion-Basal Cell EDENILSON ANDREWS MD Mar 20, 2021 06:59
[2021-03-20] MEDS ORDERED: MUPIROCIN 2% OINT 22 GM (BACTROBAN) TUBE ONE (07:01)
[2021-03-20] MEDS ORDERED: LIDOCAINE/EPI 1%-1:100,000 (XYLOCAINE) 20ML ONE (07:01)
[2021-03-20] MEDS ORDERED: GLYCOPYRROLATE 0.2 MG/ML (ROBINUL) 2 ML VIAL ONE (08:15)
[2021-03-20] MEDS ORDERED: NEOSTIGMINE 3 MG/3 ML VIAL ONE (08:16)
--- NOTE | 2021-03-20 08:16 | Progress Note-Post Operative ---
Post-Operative Progess Note Surgeon (s)/Machined Parts Metal Sprayer (s) Surgeon EDENILSON ANDREWS MD Machined Parts Metal Sprayer n/a Pre-Operative Diagnosis Right Nasal Alar Lesion-Basal Cell Post-Operative Diagnosis same Post-Op Procedure Note Date of Procedure: Mar 20, 2021 Name of Procedure Performed: Excision of BAsal cell Right Nasal Alae, Reconstructions with Full Thickness Skin Graft, Donor Site-Right Pre-Auricular Region Description & Findings Description and Findings: n/a Anesthesia Type get Estimated Blood Loss minimal Packing none. Specimen(s) collected/removed right nasal alae lesion to path for frozen EDENILSON ANDREWS MD Mar 20, 2021 08:16
[2021-03-20] MEDS ORDERED: HYDROcodone/APAP 5 MG/325 MG (LORTAB) TAB PO PRN (08:30)
[2021-03-20] MEDS ORDERED: ACETAMINOPHEN 325 MG TABLET PO PRN ×2 (08:30)
[2021-03-20] MEDS ORDERED: ACHD5005 PO (08:57)
[2021-03-20] MEDS ORDERED: CEPH500T PO (08:57)
[2021-03-20] MEDS ORDERED: ONDANSETRON 4 MG/2 ML (SDV) Z0FRAN IVP PRN (09:00)
[2021-03-20] MEDS ORDERED: HYDROmorphone 2 MG/ML VIAL (DILAUDID) IV ONE (09:00)
--- NOTE | 2021-03-20 11:41 | Anesthesia-General Post-Op ---
General Patient Condition Mental Status/LOC: Same as Preop Cardiovascular: Satisfactory Nausea/Vomiting: Absent Respiratory: Satisfactory Pain: Controlled Complications: Absent Post Op Complications Complications None Follow Up Care/Instructions Patient Instructions None needed. Anesthesia/Patient Condition Patient Condition Patient is doing well, no complaints, stable vital signs, no apparent adverse anesthesia problems. No complications reported per nursing. D/C home per [facility] Criteria: Yes MANISHA ONEAL CRNA Mar 20, 2021 11:41
== END 2021-03-20 10:30 | disposition home or self-care (01) ==
LOC: SDC 06:05
PROVIDERS: ATTEND Otolaryngology Otolaryngology/Facial Plastic Surgery
DX: C44.311 Basal cell carcinoma of skin of nose (principal); F17.210 Nicotine dependence, cigarettes, uncomplicated; Z79.82 Long term (current) use of aspirin; Z79.01 Long term (current) use of anticoagulants; Z79.899 Other long term (current) drug therapy; I10 Essential (primary) hypertension; I48.91 Unspecified atrial fibrillation; Z86.73 Personal history of transient ischemic attack (TIA), and cerebral infarction without residual deficits; Z99.81 Dependence on supplemental oxygen
CPT/HCPCS: 88305; 88331; 88332